=== PATIENT | male | born 1980 | race Caucasian/White ===

== ENCOUNTER 2020-09-06 00:31 | Emergency (ER) | payer MEDICAID ==
[~2020-09-06] VITALS: Ht 177.8 cm; Wt 92.0 kg
[2020-09-06] MEDS ORDERED: ASPIRIN 325MG TABLET PO ONE (01:15)
[2020-09-06 01:17] LABS: BASOPHILS % 0.4 % (0.0-2.0); EOSINOPHILS % 1.9 % (0.0-5.0); HEMATOCRIT. 32.3 % (42.0-52.0); HEMOGLOBIN. 10.8 g/dL (14.0-18.0); LYMPHOCYTES % 34.7 % (20.0-50.0); MEAN CORPUSCULAR HEMOGLOBIN 29.8 pg (28.0-32.0); MEAN CORPUSCULAR VOLUME 89.5 fL (80.0-94.0); MEAN PLATELET VOLUME 6.4 fl (7.4-10.4); PLATELET 155 x1000/uL (130-400); RED BLOOD CELL COUNT 3.61 mill/uL (4.7-6.1); RED CELL DISTRIBUTION WIDTH 19.5 % (11.6-14.6)
[2020-09-06 01:25] LABS: CHLORIDE 111 mEq/L (98-107)
[2020-09-06] MEDS ORDERED: IOHEXOL-350 100 ML BOTTLE ONE (02:32)
[2020-09-06] MEDS ORDERED: SODIUM CHLORIDE 0.9% 1,000 ML IV ONE (07:30)
[2020-09-06 09:10] VITALS: BP 113/63
== END 2020-09-06 09:54 | disposition home or self-care (01) ==
LOC: ER 00:37
DX: R07.9 Chest pain, unspecified (principal); R06.00 Dyspnea, unspecified; I11.0 Hypertensive heart disease with heart failure; I50.9 Heart failure, unspecified; E11.9 Type 2 diabetes mellitus without complications; Z98.890 Other specified postprocedural states; Z86.718 Personal history of other venous thrombosis and embolism
CPT/HCPCS: 36415; 71045; 71275; 80053; 82962; 83880; 84484; 85025; 93005; 99285; J7030; Q9967

== ENCOUNTER 2020-09-16 01:03 | Emergency (ER) | payer MEDICAID ==
[~2020-09-16] VITALS: Ht 170.2 cm; Wt 138.0 kg
[2020-09-16] MEDS ORDERED: SODIUM CHLORIDE 0.9% 1,000 ML IV ONE (01:45)
[2020-09-16 02:20] LABS: CHLORIDE 112 mEq/L (98-107)
[2020-09-16 02:22] LABS: MEAN CORPUSCULAR HEMOGLOBIN 29.7 pg (28.0-32.0); MEAN CORPUSCULAR VOLUME 88.8 fL (80.0-94.0); MEAN PLATELET VOLUME 6.9 fl (7.4-10.4); PLATELET 127 x1000/uL (130-400); RED BLOOD CELL COUNT 3.38 mill/uL (4.7-6.1); RED CELL DISTRIBUTION WIDTH 18.4 % (11.6-14.6)
[2020-09-16 02:37] LABS: ETHANOL BLOOD 361 mg/dL
[2020-09-16 06:25] LABS: PLATELET ESTIMATE SLIGHTLY DECREASED
[2020-09-16 06:46] VITALS: BP 118/75
== END 2020-09-16 06:49 | disposition home or self-care (01) ==
LOC: ER 01:10
DX: F10.129 Alcohol abuse with intoxication, unspecified (principal); Y90.8 Blood alcohol level of 240 mg/100 ml or more; M71.22 Synovial cyst of popliteal space [Baker], left knee; D61.818 Other pancytopenia; I11.0 Hypertensive heart disease with heart failure; I50.9 Heart failure, unspecified; E11.9 Type 2 diabetes mellitus without complications
CPT/HCPCS: 36415; 71045; 80053; 80320; 82962; 85025; 93970; 96360; 96361; 99285; J7030; Z7610; G0480